=== PATIENT | male | born 1955 | race Caucasian/White ===

== ENCOUNTER 2019-05-10 00:33 | Emergency (ER) | payer MEDICARE ==
[2019-05-10 00:45] VITALS: PULSE 80; RESP 18
--- NOTE | 2019-05-10 01:47 | CT ---
EXAM: CT Cervical Spine Without Intravenous Contrast CLINICAL HISTORY: ITS.REASON CT Reason: Pain TECHNIQUE: Axial computed tomography images of the cervical spine without intravenous contrast. CTDI is 8 mGy and DLP is 262 mGy-cm. This CT exam was performed using one or more of the following dose reduction techniques: automated exposure control, adjustment of the mA and/or kV according to patient size, and/or use of iterative reconstruction technique. COMPARISON: No relevant prior studies available. FINDINGS: Vertebrae: Oblique fracture line through the C2 body extending to the right transverse foramen. Anterior osteophytes from C2-C7. Discs/spinal canal/neural foramina: Mild degenerative changes. No high grade spinal canal stenosis. Soft tissues: 22 mm groundglass opacity in the right upper lobe. IMPRESSION: 1. Oblique fracture line through the C2 body extending to the right transverse foramen, consistent with type III odontoid fracture. Given that the fracture line extends to the right transverse foramen, recommend CT of the neck to rule out vascular injury. Also recommend MRI of the cervical spine to rule out soft tissue injury. 2. 22 mm groundglass opacity in the right upper lobe, correlate with infectious/inflammatory process. Recommend characterization on an outpatient basis. <MYCVCSECTION> Critical Value Communications 05/10/19 01:48 Call Doctor Regarding Above results, called Dr Dumas
[2019-05-10 02:44] LABS: Amphetamine Screen,Urine Not Detected (NotDetected); Barbiturate Screen,Urine Not Detected (NotDetected); Benzodiazepines Screen,Urine Not Detected (NotDetected); Cocaine Screen,Urine Not Detected (NotDetected); Methadone Screen, Urine Not Detected (NotDetected); Opiate Screen,Urine Not Detected (NotDetected); Oxycodone Screen, Urine Not Detected (NotDetected); Phencyclidine Screen,Urine Not Detected (NotDetected); Tricyclic Antidepressant,Urine Not Detected (NotDetected); Urn Cannabinoid Scrn Not Detected (NotDetected)
--- NOTE | 2019-05-10 03:31 | ED ---
General Adult HPI <Jose Elias Davis - Last Filed: 05/10/19 04:40> - General Source: patient Mode of arrival: ambulatory Limitations: no limitations <Briana Mitchell - Last Filed: 05/10/19 18:30> - General Chief complaint: Psychiatric Symptoms Stated complaint: Neck Pain Time Seen by Provider: 05/10/19 00:47 - History of Present Illness Initial comments: 63-year-old male patient presents to the emergency department today for evaluation of neck pain. Patient states that 3 months ago he had a fall down the stairs and had a fracture to his C2 vertebrae. Patient states that he experienced another fall today. States he was not wearing his c-collar during the fall. Patient states he was at ground level and fell forward. Patient states he is having increased neck pain since this injury. Patient's brother who is also the patient's legal guardian is present and is requesting he undergo psychiatric evaluation. States he has a history of bipolar disorder and he has been manic over the last couple of weeks. Patient states he is taking his medications as directed. Patient states he does have a history of alcohol abuse but has been sober for the last 3 months 11 days. Patient does not feel he is manic and does not feel he requires psychiatric evaluation. Denies any suicidal or homicidal ideation. Patient denies any recent rash, fever, chills, shortness breath, chest pain, abdominal pain, nausea, vomiting, diarrhea, constipation, back pain, numbness, tingling, dizziness, weakness, hematuria, dysuria, urinary urgency, urinary frequency, headache, visual changes, or any other complaints. (Briana Mitchell) - Related Data Home Medications Medication Instructions Recorded Confirmed Insulin Glargine [Lantus] 30 unit SQ HS 02/12/15 02/12/15 Repaglinide [Prandin] 1 mg PO DAILY 02/12/15 02/12/15 Allergies Allergy/AdvReac Type Severity Reaction Status Date / Time Penicillins Allergy Unknown Verified 05/10/19 00:45 Childhood Review of Systems ROS Other: All systems not noted in ROS Statement are negative. <Jose Elias Davis - Last Filed: 05/10/19 04:40> ROS Other: All systems not noted in ROS Statement are negative. <Briana Mitchell - Last Filed: 05/10/19 18:30> ROS Statement: Those systems with pertinent positive or pertinent negative responses have been documented in the HPI. 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 Vital signs upon presentation are temperature 98.4F, pulse 80, respirations 18, blood pressure 151/79, pulse ox 100% on room air.) Head exam: Present: atraumatic, normocephalic, normal inspection Eye exam: Present: normal appearance, PERRL, EOMI. Absent: scleral icterus, conjunctival injection, periorbital swelling ENT exam: Present: normal exam, normal oropharynx, mucous membranes moist Neck exam: Present: normal inspection. Absent: tenderness, meningismus, full ROM ([place] c-collar in place), lymphadenopathy Respiratory exam: Present: normal lung sounds bilaterally. Absent: respiratory distress, wheezes, rales, rhonchi, stridor Cardiovascular Exam: Present: regular rate, normal rhythm, normal heart sounds. Absent: systolic murmur, diastolic murmur, rubs, gallop, clicks GI/Abdominal exam: Present: soft, normal bowel sounds. Absent: distended, tenderness, guarding, rebound, rigid Back exam: Present: normal inspection, other (Nontender, no step-off, no deformity to firm midline palpation of the thoracic and lumbar vertebrae. Full range of motion without pain or limitation.). Absent: vertebral tenderness Neurological exam: Present: alert, oriented X3, CN II-XII intact Psychiatric exam: Present: normal affect, normal mood. Absent: homicidal ideation, suicidal ideation Skin exam: Present: warm, dry, intact, normal color. Absent: rash <Briana Mitchell - Last Filed: 05/10/19 18:30> Course Vital Signs 05/10/19 05/10/19 00:40 05:00 Temperature 98.4 F 98 F Pulse Rate 80 80 Respiratory 18 18 Rate Blood Pressure 151/79 151/84 O2 Sat by Pulse 100 98 Oximetry Medical Decision Making - Radiology Data Radiology results: report reviewed, image reviewed <Briana Mitchell - Last Filed: 05/10/19 18:30> - Medical Decision Making 63-year-old male patient presents to the emergency department today for evaluation of neck pain after experiencing a fall. Patient has a known C2 fracture that he sustained approximately 3 months ago. Physical examination did reveal some mild posterior cervical tenderness. He had no radiating pain down the arms. Neurologically intact. Denied hitting his head or losing consciousness. CT of the C-spine redemonstrated C2 fracture. Patient also has history of bipolar disorder. Brother who is legal guardian is present and requests psychiatric evaluation. Patient underwent psychiatric evaluation, it is felt that he is safe for discharge home. He will follow-up outpatient as necessary. (Briana Mitchell) - Lab Data Lab Results 05/10/19 Range/Units 01:23 Urine Opiates Screen Not Detected (NotDetected) Ur Oxycodone Screen Not Detected (NotDetected) Urine Methadone Screen Not Detected (NotDetected) Ur Propoxyphene Screen Not Detected (NotDetected) Ur Barbiturates Screen Not Detected (NotDetected) U Tricyclic Antidepress Not Detected (NotDetected) Ur Phencyclidine Scrn Not Detected (NotDetected) Ur Amphetamines Screen Not Detected (NotDetected) U Methamphetamines Scrn Not Detected (NotDetected) U Benzodiazepines Scrn Not Detected (NotDetected) Urine Cocaine Screen Not Detected (NotDetected) U Marijuana (THC) Screen Not Detected (NotDetected) - Radiology Data CT of the C-spine without contrast was obtained. Report is reviewed in its entirety. Impression by Dr. Saldana shows oblique fracture line to the C2 body extending to the right transverse foramen, consistent with type III odontoid fracture. Given that the fracture line extends of the right transverse foramen recommend CT of the neck to rule out vascular injury. Also recommended MRI of the cervical spine to rule out soft tissue injury. 22 mm ground glass opacity in the right upper lobe, correlate with infectious inflammatory process. Recommend characterization on an outpatient basis. (Briana Mitchell) Disposition Is patient prescribed a controlled substance at d/c from ED?: No <Jose Elias Davsi - Last Filed: 05/10/19 04:40> <Briana Mitchell - Last Filed: 05/10/19 18:30> Clinical Impression: Mood disorder Disposition: HOME SELF-CARE Condition: Good Instructions (If sedation given, give patient instructions): Mood Disorders (ED) Referrals: Shiv Mathis MD [Primary Care Provider] - 1-2 days
[2019-05-10 05:01] VITALS: BP 151/84; TEMP 98
== END 2019-05-10 05:04 | disposition home or self-care (01) ==
LOC: EC 00:33
DX: F39 Unspecified mood [affective] disorder (principal); M54.2 Cervicalgia; E11.9 Type 2 diabetes mellitus without complications; Z79.4 Long term (current) use of insulin; Z88.0 Allergy status to penicillin; Z87.891 Personal history of nicotine dependence
CPT/HCPCS: 72125; 80306; 82075; 99283

== ENCOUNTER → 2019-05-26 | Outpatient (CLI) | payer MEDICARE ==
--- NOTE | 2019-05-26 10:27 | CT ---
EXAMINATION TYPE: CT angio neck DATE OF EXAM: 05/26/2019 HISTORY: Vertebral artery dissection COMPARISON: CT of the cervical spine dated 05/10/2019 CT DLP: 337 mGycm. Automated Exposure Control for Dose Reduction was Utilized. TECHNIQUE: CTA scan of the neck is performed without and with IV Contrast, patient injected with 50 ml mL of Isovue 370, axial images are obtained, coronal and sagittal reformatted images are reviewed. Three-D reconstructed images are created on an independent workstation and reviewed. FINDINGS: Carotid/Vascular Structures: Normal three-vessel takeoff off the aortic arch. Origins of the bilatera l vertebral arteries are patent. 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 Bilateral commo n carotid arteries are patent. Minimal atherosclerotic plaque is seen at the left carotid bifurcation . Bilateral internal carotid arteries are patent. External carotid artery is patent. Left vertebral artery is patent. Redemonstration of type III odontoid fracture extending into the right transverse foramen. In the reg ion of the C2 right vertebral artery at foramen, there is a semilunar appearance of the right vertebr al artery with distal absence of contrast opacification on axial image 24, 23 and 22 there appears to be a small amount of distal trickle flow seen in the right vertebral artery on images 16, 15 and 14. There is opacification of the V4 segment with a few areas of decreased caliber distally near the ent gregory of the basilar artery. On the soft tissue window, there is edematous changes within the fat selam rounding the right vertebral artery foramen from associated odontoid fracture. Other: Redemonstration of right upper lobe groundglass suprahilar inflammatory changes. Multilevel cervical spondylosis. Mucosal thickening of the bilateral posterior maxillary sinuses. IMPRESSION: Type III odontoid fracture with extension into the right C2 vertebral foramen with absence of opacifi cation of the vertebral artery within the foramen and extending laterally as it exits the neural fora men. Differential for these findings include focal vertebral artery dissection versus near occlusion from surrounding edema. History provided was follow-up vertebral artery dissection. Outside compariso ns would be helpful for assessment of the degree of dissection/occlusion.
== END | disposition home or self-care (01) ==
LOC: RADCTMAIN 07:10 → EEVIPCON 08:40
PROVIDERS: ATTEND Neurological Surgery
DX: S12.190A Other displaced fracture of second cervical vertebra, initial encounter for closed fracture (principal); I77.74 Dissection of vertebral artery
CPT/HCPCS: 82565; 84520; 70498; 36415; Q9967